=== PATIENT | male | born 1945 | race Caucasian/White ===

== ENCOUNTER 2019-02-15 16:33 | Inpatient (IN) | payer OTHER ==
[~2019-02-15] VITALS: Ht 172.7 cm; Wt 67.7 kg
--- NOTE | ~2019-02-15 | D ---
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 This patient is terminal, expected to pass away within 72 hours, discharged to [facility], ____ treatment provided per that facility. ADDITIONAL LABORATORY DATA: On 02/15/2019, H and H 13.9 and 41.0, white count 10.0, platelet count 268. ESR was 30. Last chemistry done on 02/18/2019, sodium 146, chloride 108, BUN 31, creatinine 1.7, glucose 152, calcium 10.3, B12 of 2618, TSH 0.775. Toxicology was negative. Urine showed 3-10 rbc's. REASON FOR ADMISSION: The patient has been agitated, shaking, being not able to care for him. HOSPITAL COURSE: The patient was admitted to the [facility]iatric Psychiatric Unit. He was ____ seen over the weekend by Dr. Vamsi Washington. He was on several numerous psychiatric medications including Sinemet. Monday of this week, met with the family, daughter and the decision was made to give comfort care. Home meds were discontinued. Ativan, atropine and Roxanol sublingual forms were used for management. Hospice consultation was done on 02/19/2019. The patient was accepted and rapidly referred to the hospice house. PHYSICAL EXAMINATION: VITAL SIGNS: At time of discharge, temperature 36.9, pulse 83, respirations 18, BP 123/68, O2 at bedside at 0915 was 87%, that later dropped today at 78%. Oxygen was electively not used. MENTAL STATUS EXAMINATION: The patient was nonverbal and interview was impossible. Well-developed, well-nourished male, likely in terminal delirium. PROGNOSIS: Terminal with expected within 72 hours. At the patient's [address] [address] DISCHARGE SUMMARY Name: BIANKA ALLISON Room #: 526B-B [facility] IN .R.#: [id number] Admission: 02/15/19 ������������������ Attend Phys: Vamsi Washington MD Discharge: 02/19/19 ������������������ Date of : 41 Report #: [id number] bedside on the day of discharge were his , his daughter and his son. Efforts were made to meet their needs. ��������������������������������������������� ���������������������������������������� By: ��������������������������������������������� 19 0007 Adarsh Sheets, DO /nt
[2019-02-15 16:34] VITALS: BP 134/105
[2019-02-15] MEDS ORDERED: COZAAR 25 MG TA25 M2 PO (17:03)
[2019-02-15] MEDS ORDERED: ALPHAGAN P5 ML OPHTHALMIC (17:03)
[2019-02-15] MEDS ORDERED: NAMENDA 10 MG T10 MG PO (17:03)
[2019-02-15] MEDS ORDERED: ARICEPT 5 MG TAB5 MG PO (17:03)
[2019-02-15] MEDS ORDERED: WELLBUTRIN XL150 MG PO (17:04)
[2019-02-15] MEDS ORDERED: SIMVASTATIN20 MG PO (17:04)
[2019-02-15] MEDS ORDERED: SINEMET 25-1001 EAC1 PO (17:05)
[2019-02-15] MEDS ORDERED: XANAX 0.5 MG0.5 MG PO (17:05)
[2019-02-15] MEDS ORDERED: FLOMAX0.4 MG PO (17:05)
[2019-02-15] MEDS ORDERED: PROBIOTIC1 EAC1 PO (17:06)
[2019-02-15] MEDS ORDERED: SEROQUEL 25 MG25 M1 PO (17:06)
[2019-02-15 17:47] LABS: ABSOLUTE NEUTROPHILS 6.3 thou/uL (1.4-8.2); BASOPHILS 0.5 % (0.0-2.0); EOSINOPHILS 1.1 % (0.0-3.0); HEMOGLOBIN 13.9 gm/dL (14.0-18.0); LYMPHOCYTES 23.5 % (24.0-44.0); MCV 88.2 fL (80.0-100.0); MONOCYTES 11.7 % (1.0-8.0); PLATELET COUNT 268 thou/uL (150-400); POLYS 63.2 % (36.0-66.0); RBC 4.64 mil/uL (4.50-6.00); RDW 13.6 % (10.5-14.5)
[2019-02-15 17:55] LABS: CALCIUM 9.6 mg/dL (8.5-10.1); CREATININE 1.6 mg/dL (0.7-1.3)
[2019-02-15 18:25] LABS: URINE BILIRUBIN NEGATIVE (Negative); URINE BLOOD 3+ (Negative); URINE CLARITY CLEAR; URINE COLOR YELLOW; URINE GLUCOSE-RANDOM* NEGATIVE (Negative); URINE KETONES NEGATIVE (Negative); URINE LEUKOCYTES-REFLEX TRACE (Negative); URINE NITRITE-REFLEX NEGATIVE (Negative); URINE PROTEIN (DIPSTICK) NEGATIVE (Negative); URINE SPECIFIC GRAVITY <= 1.005 (1.005-1.035); URINE UROBILINOGEN 0.2 E.U./dl (0.2-1.0)
[2019-02-15 18:32] LABS: AMP/METHAMP Negative (Negative); BARBITURATES Negative (Negative); BENZODIAZEPINES Negative (Negative); COCAINE Negative (Negative); METHADONE Negative (Negative); OPIATES Negative (Negative); PCP Negative (Negative)
[2019-02-15 18:44] LABS: BACTERIA-REFLEX None Seen /HPF (None Seen); CASTS None Seen /LPF (None Seen); CRYSTALS None Seen /LPF (None Seen); SQUAMOUS 0-3 Few /LPF (0-3); URINE RBC 3-10 Few /HPF (0-2); URINE WBC-REFLEX None Seen /HPF (0-5)
[2019-02-15 21:25] VITALS: BP 170/86
[2019-02-15 21:39] VITALS: BP 118/82
--- NOTE | 2019-02-16 01:32 | NUR ---
Patient arrived from the ER with , daughter and family friend. Patient was brought to the ER this AM by private vehicle for evaluation due to increased agitation and hallucinations. 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 states that she cares for 01/05 while at home. Reports that patient has an average of 3 falls per day. Reports that she calls the fire department or friends frequently to help him off of the floor. reports that patient has not slept more than a couple hours over the last 3 nights. Reports that he layed on the floor at home last night and appeared to be fighting something or someone all through the night. Patient has the diagnosis of Parkinson's disease and has tremors throughout his body frequently. reports that the tremors become more intense when he is anxiety or agitated. Patient also has the diagnosis of Corticobasal Degeneration Syndrome. Patient has aphasia due to this diagnosis. Patient is no longer able to feed himself and requires to be fed. states that she has to cut up his food in very small pieces for him to eat. MD consulted and a Mechanical soft diet has been ordered. Patient has NKDA. reports that patient wears an adult brief at all times while at home but he is primarily able to make it to the bathroom to toilet himself. Patient has been incontinent since arrival to the unit. reports that patient has recently been spitting out all of his medications. Medications were crushed with pudding and he took them well this shift. reports that patient has bilateral hearing aides and will bring them in the morning. reports that patient also has difficulty with vision but does not use any visual aides at this time. reports that patient will nod his head up and down for yes, say na-na-na for no. reports that patient will pat his stomach when he is full or tap the bottom of his chin. Patient has been restless since admitted to unit. Provided ordered HS medications. Patient continued to have strong tremors, kicking legs off of bed, thrashing. Dr. Washington notified. Order obtained for Seroquel 25mg po 1x dose now. Medication administered. Patient appears to be resting at this time. When speaking with patient, he will look at nurse with a blank stare. No emotions shown. Unable to answer any questions for nurse. Becomes startled easily and will swing his arms at staff when startled. Patient has required total assist with staff x2 for ADL completion since admission to the unit.
--- NOTE | 2019-02-16 06:31 | NUR ---
Patient took AM medication crushed with pudding this AM without difficulty. Patient was anxious, kicking, increased tremors, moaning and hollering. Patient had not had an incontinent episode. Patient provided water and pudding which was not helpful. Nurse assisted resident with use of urinal while he was laying in bed. Patient tried to hit and kick staff while yelling. Patient was told to use the bathroom several times. Patient urinated in the urinal with maximal assist from staff. Patient was then able to rest and is now sleeping quietly in bed.
[2019-02-16 07:00] VITALS: BP 135/88
--- NOTE | 2019-02-16 11:01 | EKG ---
[address] [place] [place] [address] ELECTROCARDIOGRAM REPORT Name: BIANKA ALLISON Room #: 526B-B ADM IN M.R.#: [id number] ������������������ Admission: 02/15/19 ������������������ Attend Phys: Vamsi Washington MD Discharge: ������������������ Date of : 41 Report #: [id number] ����������������������������������������������������������������� [id number] THIS REPORT FOR: //name// [facility] ED Test Date: 2019-02-15 Test Time: 16:57:15 Pat Name: BIANKA ALLISON Department: Room: 52 Gender: M Risk Control Consultant: JON : 1945 Requested By: Angel Luis Eduardo Order Number: [id number] MD: Kiran Reese Measurements Intervals [place] Rate: 83 P: -10 MA: 161 QRS: -38 QRSD: 76 T: 48 QT: 356 QTc: 419 Interpretive Statements Sinus rhythm Abnormal R-wave progression, late transition Leftward axis No previous ECG available for comparison Electronically Signed On 02-16-2019 11:01:09 CDT by Kiran Reese [email or web address] ��������������������������������������������� <ELECTRONICALLY SIGNED> ���������������������������������������� By: Kiran Reese MD, [facility] ��������������������������������������������� 02/16/19 1101 56 56 Kiran Reese MD, FAC /EPI
--- NOTE | 2019-02-16 12:42 | NUR ---
ASSUMED PATIENT CARE AT 0700. PATIENT IN BED AT THAT TIME, ASSISTED BY STAFF TO BE UP FOR MEALS. PATIENT OBSERVED WITH JERKINESS OF ARMS, POSSIBLY ANXIETY. SPOUSE VISITED AT 10:45, STATED THAT PATIENT USUALLY TAKEX XANAX UP TO THREE TIMES A DAY, PRN, AT HOME; XANAX ONLY ORDERED AT HS. NEW ORDER PER DR. WASHINGTON, XANAX 1MG TID, FIRST DOSE NOW. PATIENT ADMINISTERED 1 MG OF XANAX AT APPROXIMATELY 11:45 A.M.
--- NOTE | 2019-02-16 13:50 | NUR ---
NURSE ATTEMPTED TO ADMINISTER 1400 MEDICATIONS, HOWEVER, PATIENT TOO SEDATED AT THIS TIME, APPARENTLY FROM PREVIOUS DOSE OF XANAX. MEDICATIONS HELD UNTIL PATIENT IS AWAKE ENOUGH TO TAKE SAFELY.
[2019-02-17 02:55] VITALS: BP 154/86
--- NOTE | 2019-02-17 03:49 | NUR ---
IN BED AND EXTREMELY RESTLESS/AGITATED UPON INITIAL ASSESSMENT THIS PM-REPORTED BY DIRECTOR OF NURSING UNABLE TO OBTAIN VS D/T MOVEMENT/AGITATION. IS NOTED TO HAVE ALMOST CONSTANT JERKING OF UPPERLOWER EXTREMETIES AND TORSO. WHILE THIS RN OBSERVING AT BEDSIDE OPENED EYES AND BEGAN TO PUNCH OUT AND YELL AT UNSEEN OTHER DIRECTLY IN FRONT OF HIM RAISING UPPER BODY OFF OF BED-WILL GRAB OUT AND PULL AT STAFF HAIR,WRIST ETC AND D/T COMBATIVE BEHAVIOR AND AGITATION REQUIRED ASSIST OF THREE STAFF FOR BEDDING AND CLOTHING CHANGE AT 2134-INITALLY WHEN GIVEN HS MEDS CRUSHED WITH PUDDING SPIT THEM OUT AT STAFF- BUT DID START TO SWALLOW PUDDING MAKING IT DIFFICULT TO DETERMINE PERCENTAGE OF HS MEDS RECEIVED-XANAX 1MG GIVEN UT PRN ALONG WITH SCHEDULED MEDS AT 2134-REPEATED PRN AT 229 MT ABOVE NOTED AND DOES APPEAR TO BE RESTING AT THIS TIME-
[2019-02-17 07:40] VITALS: BP 162/91
--- NOTE | 2019-02-17 11:23 | NUR ---
ASSUMED PATIENT CARE AT 0700. PATIENT IN BED AT THAT TIME, FLAILING HIS ARMS AND LEGS, CRYING OUT LOUDLY. XANAX ORDERED FOR THREE TIMES DAILY, ADMINISTERED AT 0600 THIS DATE, INEFFECTIVE RESULTS, PER THIS NURSE'S OBSERVANCE OF PATIENT AT 0700. NURSE ATTEMPTED TO GIVE PO MEDS, INCLUDING XANAX IN ICE CREAM, SPIT OUT THE FIRST BITE, REFUSED TO TAKE OTHERS. NEW ORDER FOR ATIVAN 1 MG AT 1030 A.M. PATIENT CALMED DOWN CONSIDERABLE ABOUT 20 MINUTES AFTER INJECTION. SPOUSE VISIING AT THIS TIME, TEARFUL AT BEDSIDE. NURSE OFFERED TO HELP HER WITH ANYTHING, JUST TO LET ME KNOW. NURSE STEPPED BACK INTO PATIENT'S ROOM AT 11:40, DISCUSSED PATIENT'S FUTURE PLANS FOR PATIENT.
--- NOTE | 2019-02-17 15:48 | NUR ---
SW was unable to complete assessment with the Pt. Pt is non verbal. SW was able to complete the assessment over the phone with Pt's Brooke. Brooke was stated she was unable to care for the Pt in the home. Brooke stated Pt falls several times a day and she is unable to pick Pt up. Brooke has to call for assistance. Brooke stated the Pt hullucinates often and is unable to care for himself. Brooke stated pt cannot return to the home. Brooke stated she has looked at a long-term but Pt was denied admission. ADELINA spoke with Brooke about SW services and if she needs a list of nursing homes with demintia units or psychiatric units SW can assist. ADELINA also talked to Brooke about looking for placement for the Pt as that will be a part of his discharge plan. Brooke stated she is hopefully to speak with the psychiatrist concerning Pt's needs. Brooke had no further questions or concerns for this SW.
--- NOTE | 2019-02-17 17:35 | H ---
[facility] [place] [place] [address] HISTORY AND PHYSICAL Name: BIANKA ALLISON Room #: 526B-B ADM IN M.R.#: [id number] Admission: 02/15/19 ������������������ Attend Phys: Vamsi Washington MD Discharge: ������������������ Date of : 43 Report #: [id number] THIS REPORT FOR: //name// CC: [facility] physician/PCP Vamsi Washington DATE OF SERVICE: 02/15/2019 IDENTIFYING INFORMATION: This is a 73-year-old male, . CHIEF COMPLAINT: Increased agitation. HISTORY OF PRESENT ILLNESS: This is a 73-year-old male with significant history of corticobasal degeneration, frontal lobe disorder and progressive primary focal aphasia. The patient, as mentioned, himself is aphasic, spastic and confused. Most of the information was obtained from the family, that is his and his son. The patient was brought to the Emergency Room by for increased agitation and hallucinations. He has been falling at least 3 times per day and often calls friends or fire department. In the last 3 days, he has slept for 2 hours. Lately, he is spitting all his medications, agitated. The patient has significant muscle spasms, twitches, tremors. He has been confused at various times in the day, especially in the evening and has not been able to handle him and manage him at home. He has been incontinent and spoiling the clothes. No history of alcohol or substance abuse issues. REVIEW OF SYSTEMS: The patient exhibits significant tremors, muscle spasms, twitching. VITAL SIGNS: Temperature 36.3, pulse 88, respiration 14 per minute, blood pressure 135/85 mmHg. PSYCHIATRIC HISTORY: History of depression, anxiety and dementia. PAST MEDICAL HISTORY: Parkinson's disease, corticobasal degeneration syndrome, hypertension, hyperlipidemia, benign prostatic hypertrophy, hearing impairment, primary focal aphasia, frontal lobe disorder. CURRENT MEDICATIONS: Alphagan, losartan, Aricept, Namenda, simvastatin, Wellbutrin, Sinemet, Xanax, Flomax and Seroquel. ALLERGIES: No known drug allergies. LABORATORY DATA: Show low hemoglobin 13.9, low hematocrit 41, BUN 19, creatinine 1.6, 3+ blood in urine. CAT scan was negative. ESR elevated at 30. [address] [address] HISTORY AND PHYSICAL Name: BIANKA ALLISON Room #: 52-B [facility] IN ..#: [id number] Admission: 02/15/19 ������������������ Attend Phys: Vamsi Washington MD Discharge: ������������������ Date of : 41 Report #: [id number] MENTAL STATUS EXAMINATION: A comprehensive mental status examination could not be taken as the patient is nonverbal, aphasic. He is somewhat disheveled. He exhibits significant muscle movements, tremors, muscle spasms, twitching. He often is seen picking things up from the space. He is confused. He is not oriented to self, place, person and situation. At times, grunts. No well-formed words, sentences, etc. Insight and judgment is poor. Memory testing could not be done. DIAGNOSES: 1. Rule out delirium secondary to general medical condition. 2. Corticobasal degeneration syndrome. 3. Frontal lobe disorder. 4. Primary focal aphasia. 5. Parkinson's disease. 6. Hypertension. 7. Hyperlipidemia. 8. Benign prostatic hypertrophy and hearing impairment. RECOMMENDATIONS: At this time, we will continue the medications. Medications have been reconciled. We will use Seroquel at an increased dose to control agitation. Medical consult will be obtained. I will discuss the case with Dr. Sheets for possible transfer to a medical floor as it appears to be delirium as there is some fluctuation in the level of consciousness, increased intensity over acute period of time, week or two, goes in favor of possibility of delirium with some abnormal labs. Education support provided to the family while we maintain adequate lighting, stimulus, not to over stimulate him. ��������������������������������������������� <ELECTRONICALLY SIGNED> ���������������������������������������� By: Vamsi Washington MD ��������������������������������������������� 02/17/19 1735 [id number] Vamsi Washington MD /nt
--- NOTE | 2019-02-17 18:26 | NUR ---
NEW ORDER FOR ATIVAN, 1 MG IM NOW AT 10:30, R/T PATIENT SPITTING OUT AND REFUSING TO TAKE HIS AM XANAX. SPOUSE AND CHILDREN VISITED FOR AFTERNOON VISITATION, SPOUSE VISITED THIS A.M.; ALL CONCERNED ABOUT PATIENT'S FUTURE CARE, i.e., WHERE TO PLACE PATIENT NEXT. SPOUSE IS UNABLE TO CARE FOR PATIENT AT HOME ANY LONGER. CONSIDERING ASSISTED LIVING FACILITY, HOWEVER, NURSE MADE PATIENT AWARE THAT ASSISTED LIVING WILL NOT TOTAL CARE PATIENTS. [facility] MENTIONED, SPOUSE STATED THAT SHE WILL CALL THAT FACILITY TO GET MORE INFORMATION.
[2019-02-18 02:21] VITALS: BP 162/91
[2019-02-18 02:25] VITALS: BP 162/91
--- NOTE | 2019-02-18 02:57 | NUR ---
PT VERY RESTLESS THIS EVENING AND THROUGH MOST OF THE NIGHT. ABLE TO GIVE MEDS WITH PUDDING AND A LITTLE ICE CREAM. ONLY SLEPT INTERMITTANTLY. CONTINUALLY KICKING BLANKETS OFF. INCONTINANT SEVERAL TIMES THROUGH THE NIGHT. LINES CHANGED X2. NOTED SOME MINOR ABRASIONS TO LEGS AND ARMS. SCABBED OVER. ASSESS IN AM FOR POSSIBLE WOUND CARE.
[2019-02-18 07:30] VITALS: BP 116/77
--- NOTE | 2019-02-18 09:54 | NUR ---
[id number]: Report rec from noc shift, care assumed. Observe pt restless, intermittent tremors, non-verbal, minimal eye contact, unable to maintain proper posture due to restlessness. Skin w/d/fragile, color pale. Takes meds crushed in pudding, with thickened water via syringe, unable to drink from cup or straw, fed by staff, appetite fair.
[2019-02-18 10:07] LABS: CALCIUM 10.3 mg/dL (8.5-10.1); CREATININE 1.7 mg/dL (0.7-1.3); POTASSIUM 4.4 mmol/L (3.5-5.1)
--- NOTE | 2019-02-18 11:56 | NUR ---
Nutrition: pt admit to [facility] unit with psychosis, severe dementia with hallucinations and Parkinsons. On mechanically altered ground diet and nsg feeding pt using syringe for liquids. Requires total assist, small bites and is eating < 25% of meals. Plan for palliative care as pt is end stage. Offered ensure pudding with and she states he prefers tapioca which we do not carry. MD will allow to bring in. RD available as need. Low risk.
[2019-02-18 22:00] VITALS: BP 106/58
[2019-02-19 04:00] VITALS: BP 94/52
--- NOTE | 2019-02-19 05:12 | NUR ---
IN BED THROUGHOUT SHIFT-REPOSITIONED EVERY 2 HOURS PER MD ORDER-HAS HAD EPISODES OF YELLING OUT,RESTLESSNESS AND AGITATION EARLY IN SHIFT (APPROX [phone]) BUT HAS RESPONSED TO MORPHINE SULFATE 10MG SL GIVEN AT 2134 AND 121-ATIVAN 0.5MG GIVEN SL AT 1928 AND 2299. HAS RESTED WELL IN LONG INTERVALS SEDATED BUT AROUSABLE TO TOUCH-TAKING THICKNED LIQUIDS WHEN MORE AWAKE-IS NOTED TO HAVE SOME COUGHING AFTER THICKNED LIQUIDS AND LUNG SOUNDS ARE DIMINISHED [id number] OTHER THAN MOANING,AND UNINTELLIGABLE YELLING NO URINE OUTPUT THROUGHOUT SHIFT SO FAR-NO BLADDER DISTENSION NOTED UPON EXAM-VS AT 0200 O2 SAT 93 PERCENT BP 90/52 R14 P-71
[2019-02-19 09:00] VITALS: BP 123/68
--- NOTE | 2019-02-19 09:03 | NUR ---
ADM MORPHINE 5MG/0.5ML FOR SIGNS OF PAIN VIA GRIMACING. PT ALSO SHAKING AT EXTREMITIES. PT HAS INSP AND EXP RHONCHI. EXP WHEEZE TO BRONCHIAL VESCULAR LUNG SOUNDS. PLACED ANKLES ON PILLOW. COUGH WITH ADM OF MORPHINE. SKIN IS COOL TO TOUCH.
[2019-02-19 09:15] VITALS: BP 123/68
--- NOTE | 2019-02-19 10:18 | NUR ---
ADM MORPHINE 5MG/0.5ML PO FOR SIGNS OF DISCOMFORT, SHAKING AT EXT.
--- NOTE | 2019-02-19 12:03 | NUR ---
FAMILY HERE TO SEE PATIENT ALONG WITH SENIOR TRIAL ATTORNEY. ADM MORPHINE 5MG/0.5ML PO FOR PAIN AND LORAZEPAM 0.5MG SL FOR FLARING ARMS AND LEGS. PULLED PT UP IN BED. STILL REMAINS DRY.
--- NOTE | 2019-02-19 12:31 | NUR ---
ADM 15ML OF MORPHINE PER SL, PT VERY AGGITATED, FAMILY AT BEDSIDE. PT CALMS DOWN THEN GETS AGGITATED.
--- NOTE | 2019-02-19 13:55 | NUR ---
FAMILY STILL AT BEDSIDE. ADM MORPHINE 20MG SL FOR AGGITATION. PT INCON. OF URINE. CHANGED GOWN, DUE TO SWEATING AND TOP SHEET. PLACED WET WASH RAG OVER FORHEAD AND BEHIND NECK.
--- NOTE | 2019-02-19 14:07 | NUR ---
ADM ALPRAZALON 0.5MG SL FOR RESTLESSNESS.
[2019-02-19] MEDS ORDERED: Atropine 1% Eye Drop SUBLING (14:11)
--- NOTE | 2019-02-19 15:31 | NUR ---
ADM MORPHINE 20MG SL PO FOR AIR HUNGER. PT HAS CALMED DOWN AT THIS TIME AND NOT FLAILING AROUND MUCH.
--- NOTE | 2019-02-19 15:53 | NUR ---
ADELINA spoke with the non-emergent ambulance to assist pt with his transport to [facility]. The ambulance service the lastest that he cam be transfer is at 1745. ADELINA provided the contact number for the nurse unit to call when in route. ADELINA completed pt discharge. ADELINA sent the discharge notes through fax to [facility]. ADELINA will follow-up with the family on February 20, 2019.
--- NOTE | 2019-02-19 16:31 | NUR ---
PT SEEMS MORE COMFORTABLE NOW. FAMILY DENIES ANY MEDS FOR HIM AT THIS TIME.
--- NOTE | 2019-02-19 16:47 | NUR ---
SW schedule an meeting [facility] for the pt to be able to provide comfort care. The pt signed hospice contract. SW schedule the non-emergent transportation for today at 1800. ADELINA completed the DNR paperwork, and added to the chart. ADELINA faxed the nursing document to the facility. ADELINA will follow-up with the family on February 20, 2019.
--- NOTE | 2019-02-19 17:37 | NUR ---
GAVE REPORT TO ROGERS AT HOSPICE HOUSE. PT LEFT VIA EMT. PT SWEATING AND WAS SHAKING TO EXT. WHEN TRANSFERED OVER. FAMILY APPRECIATED OF CARE GIVEN.
== END 2019-02-19 17:39 | disposition hospice, inpatient (51) | DRG 884 ==
LOC: ER 16:33 → EROBS 20:11 → SBH 20:11
PROVIDERS: Emergency Medicine; Psychiatry & Neurology Psychiatry; ADMIT Psychiatry & Neurology Psychiatry
DX: F01.51 Vascular dementia, unspecified severity, with behavioral disturbance (principal); R47.01 Aphasia; G20 Parkinson's disease; G31.09 Other frontotemporal neurocognitive disorder; R31.9 Hematuria, unspecified; F29 Unspecified psychosis not due to a substance or known physiological condition; N40.0 Benign prostatic hyperplasia without lower urinary tract symptoms; I10 Essential (primary) hypertension; E78.5 Hyperlipidemia, unspecified; G31.85 Corticobasal degeneration; H91.90 Unspecified hearing loss, unspecified ear; Z79.899 Other long term (current) drug therapy
CPT/HCPCS: 10880